=== PATIENT | female | born 1995 | race African-American/Black ===

== ENCOUNTER 2024-09-02 22:55 | Emergency (ER) | payer BC, MEDICAID ==
[~2024-09-02] VITALS: Ht 172.7 cm; Wt 58.0 kg
[2024-09-02 23:02] VITALS: BP 128/89; PULSE 90; RESP 18; TEMP 37; O2SAT 100
[2024-09-02] MEDS ORDERED: ONDANSETRON 4MG ODT PO ONE (23:15)
[2024-09-02] MEDS ORDERED: ACETAMINOPHEN 325MG TABLET PO ONE (23:15)
[2024-09-03 00:01] LABS: BASOPHILS % 0.3 % (0.0-2.0); EOSINOPHILS % 1.2 % (0.0-5.0); HEMOGLOBIN. 12.9 g/dL (12.0-16.0); LYMPHOCYTES % 39.8 % (20.0-50.0); MEAN CORPUSCULAR HEMOGLOBIN 28.5 pg (28.0-32.0); MEAN CORPUSCULAR VOLUME 86.4 fL (81.0-99.0); MEAN PLATELET VOLUME 8.4 fl (7.4-10.4); MONOCYTES % 6.6 % (2.0-8.0); NEUTROPHILS % 52.1 % (40.0-76.0); PLATELET 303 x1000/uL (130-400); RED BLOOD CELL COUNT 4.51 mill/uL (4.2-5.4); RED CELL DISTRIBUTION WIDTH 13.2 % (11.6-14.6); WHITE BLOOD COUNT 5.8 x1000/uL (4.5-11.0)
[2024-09-03 00:02] LABS: CHLORIDE 107 mEq/L (98-107); POTASSIUM 3.9 mEq/L (3.5-5.1); SODIUM 141 mEq/L (136-145)
[2024-09-03 00:04] LABS: CALCIUM 8.9 mg/dL (8.7-10.4); CARBON DIOXIDE 29 mEq/L (21-32)
[2024-09-03 00:08] LABS: GLUCOSE 91 mg/dL (70-105)
[2024-09-03 00:09] LABS: UREA NITROGEN BLOOD 17 mg/dL (9-23)
[2024-09-03 00:10] LABS: ALANINE AMINOTRANSFERASE 16 IU/L (10-49); ASPARTATE AMINOTRANSFERASE 21 IU/L (<34); BILIRUBIN DIRECT 0.1 mg/dL (<=3.0); PROTHROMBIN TIME 11.1 sec (9.6-11.0)
[2024-09-03 00:11] LABS: BILIRUBIN TOTAL 0.5 mg/dL (0.1-1.0); PROTEIN TOTAL 7.1 g/dL (6.0-8.3)
[2024-09-03] MEDS ORDERED: ACETAMINOPHEN 325MG TABLET PO NR (00:15)
[2024-09-03] MEDS ORDERED: ONDANSETRON 4MG ODT PO NR (00:15)
[2024-09-03 00:27] LABS: ETHANOL BLOOD < 10 mg/dL (<10)
[2024-09-03 00:29] LABS: HCG SCREEN NEGATIVE
== END 2024-09-02 23:20 | disposition left against medical advice (07) ==
LOC: ER 22:55
DX: R10.30 Lower abdominal pain, unspecified (principal); Z98.890 Other specified postprocedural states
CPT/HCPCS: 36415; 80048; 80076; 80320; 84703; 85025; 99283; G0480